=== PATIENT | female | born 1965 | race Caucasian/White ===

== ENCOUNTER 2018-05-25 20:10 | Emergency (ER) | payer MEDICAID, OTHER ==
[~2018-05-25] VITALS: Ht 154.9 cm; Wt 69.6 kg
[2018-05-25 20:21] VITALS: Ht 154.9 cm; Wt 69.6 kg
[2018-05-26] MEDS ORDERED: KETOROLAC 30 MG INJ IM STA (00:30)
[2018-05-26] MEDS ORDERED: ACET-141 PO (01:48)
--- NOTE | 2018-05-26 01:53 | ERD ---
ER Documentation Chief Complaint Chief Complaint C/O PAIN TO RT LEG, RT SHOULDER, BACK, AND NECK PAIN S/P FALL AT WORK ROS All systems reviewed and are negative except as per history of present illness. Medications Home Meds Active Scripts Acetaminophen* (Acetaminophen*) 500 MG Extra Strength Tablet, 500 MG PO Q4H PRN for PAIN AND OR ELEVATED TEMP, #30 TAB Prov:LINDA VOGT DO 05/26/18 Allergies Allergies: Coded Allergies: No Known Allergy (Unverified , 05/25/18) PMhx/Soc Medical and Surgical Hx: pt denies Medical Hx, pt denies Surgical Hx Hx Alcohol Use: No Hx Substance Use: No Hx Tobacco Use: No Smoking Status: Never smoker Physical Exam Vitals Vital Signs Date Temp Pulse Resp B/P (MAP) Pulse Ox O2 O2 Flow FiO2 Time Delivery Rate 05/25/18 98.0 90 18 162/70 97 20:21 (100) Physical Exam Const: No acute distress Head: Atraumatic Eyes: Normal Conjunctiva ENT: Normal External Ears, Nose and Mouth. Neck: Full range of motion. No meningismus. Resp: Clear to auscultation bilaterally Cardio: Regular rate and rhythm, no murmurs Abd: Soft, non tender, non distended. Normal bowel sounds Skin: No petechiae or rashes Back: No midline or flank tenderness Ext: No cyanosis, or edema Neur: Awake and alert Psych: Normal Mood and Affect Results 24 hrs Laboratory Tests Test 05/26/18 00:47 POC Beta HCG, Qualitative NEGATIVE Current Medications Medications Dose Sig/Derick Start Time Status Last (Trade) Ordered Route PRN Stop Time Admin Dose Reason Admin Ketorolac 30 mg ONCE STAT 05/26/18 DC 05/26/18 Tromethamine IM 00:30 00:44 (Toradol) 05/26/18 00:32 Departure Diagnosis: Primary Impression: Low back pain Chronicity: unspecified Back pain laterality: unspecified Sciatica presence: unspecified whether sciatica present Qualified Codes: M54.5 - Low back pain Additional Impression: Leg pain, right Condition: Fair Patient Instructions: Possible Causes of Low Back or Leg Pain, Back And Neck Pain, General Referrals: COMMUNITY CLINICS YOU HAVE RECEIVED A MEDICAL SCREENING EXAM AND THE RESULTS INDICATE THAT YOU DO NOT HAVE A CONDITION THAT REQUIRES URGENT TREATMENT IN THE EMERGENCY DEPARTMENT. FURTHER EVALUATION AND TREATMENT OF YOUR CONDITION CAN WAIT UNTIL YOU ARE SEEN IN YOUR DOCTORS OFFICE WITHIN THE NEXT 1-2 DAYS. IT IS YOUR RESPONSIBILITY TO MAKE AN APPOINTMENT FOR FOLOW-UP CARE. IF YOU HAVE A PRIMARY DOCTOR --you should call your primary doctor and schedule an appointment IF YOU DO NOT HAVE A PRIMARY DOCTOR YOU CAN CALL OUR PHYSICIAN REFERRAL HOTLINE AT IF YOU CAN NOT AFFORD TO SEE A PHYSICIAN YOU CAN CHOSE FROM THE FOLLOWING [facility] [address] [facility] [address] [facility] [address] [facility] [address] [facility] [address] [facility]. [facility]. [address] Additional Instructions: Llame al doctor MAANA y bobby terri ANTON PARA DENTRO DE 1-2 J[place].Dgale a la secretaria que nosotros le instruimos hacer esta anton.Avise o llame si thakur condicin se empeora antes de la anton. Regresa aqui si peor o no mejor. LINDA VOGT DO May 26, 2018 01:53
[2018-05-26 02:30] VITALS: BP 120/65; PULSE 68; RESP 18
== END 2018-05-26 02:35 | disposition home or self-care (01) ==
LOC: FTE 20:10
DX: M54.5 Low back pain (principal)
CPT/HCPCS: 72100; 73590; 81025; 96372; 99284; J1885